=== PATIENT | female | born 1990 | race Caucasian/White ===

== ENCOUNTER → 2017-10-30 11:11 | Outpatient (CLI) | payer OTHER, SELFPAY ==
[2017-10-30 14:04] LABS: Group B Strep DNA By PCR Negative (Negative); Internal Control PASS; Probe Check PASS; Specimen Processing Control PASS
== END ==
PROVIDERS: Family Provider Family Medicine; PCP Family Medicine; Visit Provider Obstetrics & Gynecology
DX: Z34.83 Encounter for supervision of other normal pregnancy, third trimester (principal)
CPT/HCPCS: 87081; 87653

== ENCOUNTER 2017-11-14 11:00 | Inpatient (IN) | payer OTHER, SELFPAY ==
[2017-11-14 11:21] VITALS: BMI 27.6
[2017-11-14] MEDS: Lactated Ringers 1,000 ML 50 ML IV ×5 (11:30→17:45)
[2017-11-14 11:41] LABS: Hematocrit 40.1 % (37-47); Hemoglobin 13.6 g/dl (12.0-15.0); Mean Corp Hgb Conc 33.9 g/gl (32-36); Mean Corpuscular Volume 94.4 fL (81-99); Mean Platelet Vol. 11.6 fl (6.2-12.0); Platelet Count 158 K/mm3 (150-450); RBC Distribution Width CV 14.5 % (11.6-14.6); RBC Distribution Width SD 48.2 fl (35.1-43.9); Red Blood Count 4.25 M/mm3 (4.2-5.4); Scan Indicated on CBC? Y/N NO; White Blood Count 12.9 K/mm3 (4.4-11.0)
[2017-11-14] MEDS: Oxytocin 30 units/NS 500 ml 30 UNITS/500 ML IV.SOLN IV (11:54)
[2017-11-14] MEDS: fentaNYL-bupivacaine (epidural) 100 ML BAG EPIDURAL ×2 (13:30→19:14)
--- NOTE | 2017-11-14 14:05 | PCM.PN.BLA ---
Progress Note LABOR PROGRESS NOTE Comfortable after epidural placed AVS Pitocin at 6 mIU/min EFM: 110-120s avg variability accels. Variables. Category I tracing UCs q 5-8 minutes CX: 550/mod consistency, -2 but full bladder. A/P: SROM 38 1/7 wk EGA. Pitocin augmentation. Continue Pitocin per protocol to adequate mVUs. Anticipate
--- NOTE | 2017-11-14 16:07 | PCM.PN.BLA ---
Progress Note LABOR PROGRESS NOTE Chen cath in place AVSS Pitocin just increased, at 10 mIU/min EFM 110-120s avg variability, accels. Category I tracing UCs q 4-6 mins CX: unchanged since admission except possibly lower station after catheter placed, bladder emptied A/P: 38 09/02 wk SROM, GBS neg. Pitocin induction (has not progressed with minimal augmentation. true induction). IUPC placement to guide additional Pitocin given. UCs remain widely spaced and ? adequacy given little to no change of cervix. Continue pitocin.
--- NOTE | 2017-11-14 18:30 | PCM.PN.BLA ---
Progress Note P.C. from RN giving report (as strip remote viewed). Epidural turned back, pt had tingling in her chest. 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 Adequate progress. Anticipate Continue Pitocin induction.
--- NOTE | 2017-11-14 18:33 | PN_ITS ---
Progress Note P.C. from RN giving report (as strip remote viewed). Epidural turned back, pt had tingling in her chest. 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 Adequate progress. Anticipate Continue Pitocin induction.
[2017-11-14] MEDS: Oxytocin 30 units/NS 500 ml 30 UNITS/500 ML IV.SOLN 334 UNITS IV (20:24)
--- NOTE | 2017-11-14 20:32 | PCM.DCVAG ---
Discharge Diet: No Restrictions Discharge Activity: May Shower, May Take a Tub Bath May resume sexual activity in: 4-6 weeks Additional Activity Instructions:: Nothing in the vagina for 4-6 weeks. You may return to work/school in 6 weeks. Additional Instructions: If you experience any of the following, contact your healthcare provider. Bleeding that soaks a pad every hour for 2 hours Fever 100.4 or higher Unrelieved abdominal pain Problems urinating (including inability to urinate or burning while urinating). Visual changes Severe headache Flu-like symptoms Pain or redness in one of both of your breasts Pain, warmth, tenderness or swelling in your legs, especially the calf area Frequent nausea and vomiting Symptoms of depression or anxiety If you experience any of the following, call 911 or go to the nearest Emergency Room. Chest pain Problems breathing Seizure activity Partial or complete paralysis of a body part, slurred speech, weakness or drooping of the face, or a sudden inability to walk or hold your balance Allergies/Adverse Reactions: Allergies No Known Allergies Allergy (Verified 01/12/14 07:33) Medications to take at Discharge Folic Acid 2 mg PO BID 04/15/16 Vits [Prenatabs FA] 1 tablet PO DAILY 04/15/16 Orders to be completed after discharge: Electric breast pump Location: None Selected Please Follow Up With: Yocasta Lopes MD - [phone] When: Call to make an appointment with your doctor in 6 weeks. Primary Care Physician: Diallo Campbell MD [Primary Care Provider] -
--- NOTE | 2017-11-14 20:33 | DCINST_ITS ---
Discharge Diet: No Restrictions Discharge Activity: May Shower, May Take a Tub Bath May resume sexual activity in: 4-6 weeks Additional Activity Instructions:: Nothing in the vagina for 4-6 weeks. You may return to work/school in 6 weeks. Additional Instructions: If you experience any of the following, contact your healthcare provider. * Bleeding that soaks a pad every hour for 2 hours * Fever 100.4 or higher * Unrelieved abdominal pain * Problems urinating (including inability to urinate or burning while urinating) . * Visual changes * Severe headache * Flu-like symptoms * Pain or redness in one of both of your breasts * Pain, warmth, tenderness or swelling in your legs, especially the calf area * Frequent nausea and vomiting * Symptoms of depression or anxiety If you experience any of the following, call 911 or go to the nearest Emergency Room. * Chest pain * Problems breathing * Seizure activity * Partial or complete paralysis of a body part, slurred speech, weakness or drooping of the face, or a sudden inability to walk or hold your balance Allergies/Adverse Reactions: Allergies No Known Allergies Allergy (Verified 01/12/14 07:33) Medications to take at Discharge Folic Acid 2 mg PO BID 04/15/16 Vits [Prenatabs FA] 1 tablet PO DAILY 04/15/16 Orders to be completed after discharge: Electric breast pump Location: None Selected Please Follow Up With: Yocasta Lopes MD - [phone] When: Call to make an appointment with your doctor in 6 weeks. Primary Care Physician: Diallo Campbell MD [Primary Care Provider] -
--- NOTE | 2017-11-14 20:33 | PCM.OB.VAG ---
Vaginal Delivery Maternal Presentation: Spontaneous Rupture of Membranes 38 1/7 wk SROM Method of Induction: Pitocin Amniotic Membrane Rupture Type: Spontaneous at home Amniotic Fluid Description: Clear Final CAROL: 11/27/17 Gestational age: 38 Weeks and 1 Days Date of Procedure: 11/14/17 Surgery/ Procedure Performed: Spontaneous Vaginal Delivery Type of Anesthesia: None, Epidural Description of Procedure: of a allen viable female over intact perineum. head delivered directly OA. No nuchal cord. Shoulders delivered easily with rotation. OP and nares bulb suctioned on perineum. Infant to maternal abdomen with spont cry. Delayed cord clamping cord clamped x two and cut then on maternal abdomen. PP exam; 1st perineal laceration at posterior perineum, repaired to hemostatic and intact with 3-0 vicryl Placenta delivered by spont expulsion, expression. intact, normal appearing 3V cord . trailing membranes EBL 350 cc Pt and infant tolerated procedure well. To recovery, stable condition. Ray Jacob counts correct x two. Presentation: Vertex Placental Delivery Description: Spontaneous, Expressed Placenta Disposition: [facility] Cord Vessel Description: 3 Vessels Cord Entanglement: None Drain: Chen to straight drain Estimated Blood Loss: 350 A gender: Female (1 minute): 8 (5 minute): 9 Episiotomy Description: None Laceration: Midline, Perineal Extension/lac, 1st degree Medications given after delivery: IV Pitocin Complications: None
[2017-11-14] MEDS: Oxytocin 30 units/NS 500 ml 30 UNITS/500 ML IV.SOLN 167 UNITS IV (20:55)
[2017-11-14] MEDS: 0.9% Saline Lock 10 ML Syringe IV (21:55)
[2017-11-14] MEDS: Methylergonovine 0.2 MG/ML Ampul IM ×2 (22:43→23:19)
[2017-11-14] MEDS: Carboprost Tromethamine 250 MCG/ML Ampul IM (22:50)
[2017-11-14] MEDS: Oxytocin 30 units/NS 500 ml 30 UNITS/500 ML IV.SOLN 999 UNITS IV (22:52)
[2017-11-14 23:18] LABS: Hematocrit 34.1 % (37-47); Hemoglobin 11.4 g/dl (12.0-15.0); Mean Corp Hgb Conc 33.4 g/gl (32-36); Mean Corpuscular Hgb 31.7 pg (27.0-32.0); Mean Corpuscular Volume 94.7 fL (81-99); Mean Platelet Vol. 11.5 fl (6.2-12.0); Platelet Count 149 K/mm3 (150-450); RBC Distribution Width CV 14.6 % (11.6-14.6); RBC Distribution Width SD 50.1 fl (35.1-43.9); Scan Indicated on CBC? Y/N NO; White Blood Count 17.1 K/mm3 (4.4-11.0)
[2017-11-14 23:23] LABS: Partial Thromboplast Time 25.1 Seconds (24.1-36.2)
[2017-11-14 23:25] LABS: Prothrombin Time (Protime)PT. 13.6 SECONDS (11.7-14.9)
--- NOTE | 2017-11-14 23:36 | PCM.PN.OB ---
Subjective: Patient feels weak, some what lightheaded. Fundus crampy on exam. Objective: Afeb. BP 110s/60s HR - Physical Exam General: Alert, Oriented x3, Cooperative, No apparent distress Abdomen: Soft, Non Tender, - - Fundus firm one cm below umbilicus Extremities: No edema Weight: 151 lb 0.266 oz Body Mass Index (BMI) 27.6 Intake and Output for Last 24 Hours 11/12/17 11/13/17 11/14/17 23:59 23:59 23:59 Intake Total 5207 / 5207 Output Total 2950 / 2950 Balance 2257 / 2257 Laboratory Tests Past 24 Hrs 11/14/17 11/14/17 11/14/17 11:15 11:15 22:56 WBC 12.9 H 17.1 H RBC 4.25 3.60 L Hgb 13.6 11.4 L Hct 40.1 34.1 L MCV 94.4 94.7 MCH 32.0 31.7 MCHC 33.9 33.4 RDW 14.5 14.6 RDW Differential 48.2 H 50.1 H Plt Count 158 149 L MPV 11.6 11.5 PT INR APTT Blood Type O POSITIVE Antibody Screen NEGATIVE 11/14/17 11/14/17 22:56 22:56 WBC RBC Hgb Hct MCV MCH MCHC RDW RDW Differential Plt Count MPV PT 13.6 INR 1.0 APTT 25.1 Blood Type Antibody Screen Medical Necessity - Tobacco Use Smoking Status: Never smoker Assessment[facility] with passage of large clot and continued brisk bleeding. Weight of pad equivalent to 1100cc blood loss. Delivery was uncomplicated with small first degree laceration. Blood loss at delivery 300cc. When I entered room she had been given methergine x 1 dose and hemabate x 1 dose and had pitocin bolus going. Bleeding was not heavy on my exam with no clots noted in vagina. An US was performed at the bedside with no obvious retained clot or placenta. I examined the placenta and found it to be intact. I ordered an additional dose of methergine and will observe for now. A stat cbc was ordered with hgb dropping from 13.6 to 11.4 from admission to time just after hemorrhage. Platelets 158 down to 149K. PT ptt and INR normal.
[2017-11-15] MEDS: 0.9% Saline Lock 10 ML Syringe IV (00:15)
--- NOTE | 2017-11-15 01:26 | NURSING ---
PPH see hemorrhage sheet in pt chart for notes
[2017-11-15 01:45] VITALS: BP 103/65; PULSE 79; RESP 17; TEMP 36.6; O2SAT 97
[2017-11-15] MEDS: Acetaminophen 500 MG Tablet 1000 MG PO ×2 (02:20→12:27)
[2017-11-15 06:00] VITALS: BP 117/71; PULSE 77; RESP 18; TEMP 36.2
[2017-11-15 06:30] LABS: Hematocrit 35.2 % (37-47); Hemoglobin 11.7 g/dl (12.0-15.0); Mean Corp Hgb Conc 33.2 g/gl (32-36); Mean Corpuscular Volume 96.2 fL (81-99); Mean Platelet Vol. 11.5 fl (6.2-12.0); Platelet Count 153 K/mm3 (150-450); RBC Distribution Width CV 14.6 % (11.6-14.6); RBC Distribution Width SD 50.9 fl (35.1-43.9); Red Blood Count 3.66 M/mm3 (4.2-5.4); White Blood Count 16.2 K/mm3 (4.4-11.0)
[2017-11-15 06:31] LABS: Scan Indicated on CBC? Y/N NO
--- NOTE | 2017-11-15 07:56 | NURSING ---
marshall catheter removed @ 0340
--- NOTE | 2017-11-15 08:22 | PCM.PN.OB ---
Subjective: PPD#1 Doing well. Nursing. Feels much better today after episode of bleeding, feeling weak and faint last PM. labs done last pm and today. baby nursing well. Objective: Sitting up in bed holding sleeping baby. NAD - Physical Exam General: Alert, Oriented x3, Cooperative, No apparent distress HEENT: Atraumatic Neck: Supple Abdomen: Soft - Fundus firm NT at umbilicus. Extremities: Edema - sl edema at ankles Neurological: Cranial nerves II-XII grossly intact Psych/Mental Status: Normal Affect Vital Signs Temp Pulse Resp BP Pulse Ox 97.1 F L 77 18 117/71 97 11/15/17 06:00 11/15/17 06:00 11/15/17 06:00 11/15/17 06:00 11/15/17 01:45 Oxygen Delivery Method Room Air Weight: 68.5 kg Body Mass Index (BMI) 27.6 Intake and Output for Last 24 Hours 11/13/17 11/14/17 11/15/17 23:59 23:59 23:59 Intake Total 5207 / 5207 Output Total 2950 / 2950 2400 / 2400 Balance 2257 / 2257 -2400 / -2400 Laboratory Tests Past 24 Hrs 11/14/17 11/14/17 11/14/17 11:15 11:15 11:15 WBC 12.9 H RBC 4.25 Hgb 13.6 Hct 40.1 MCV 94.4 MCH 32.0 MCHC 33.9 RDW 14.5 RDW Differential 48.2 H Plt Count 158 MPV 11.6 PT INR APTT Blood Type O POSITIVE Antibody Screen NEGATIVE Crossmatch See Detail 11/14/17 11/14/17 11/14/17 22:56 22:56 22:56 WBC 17.1 H RBC 3.60 L Hgb 11.4 L Hct 34.1 L MCV 94.7 MCH 31.7 MCHC 33.4 RDW 14.6 RDW Differential 50.1 H Plt Count 149 L MPV 11.5 PT 13.6 INR 1.0 APTT 25.1 Blood Type Antibody Screen Crossmatch 11/15/17 06:12 WBC 16.2 H RBC 3.66 L Hgb 11.7 L Hct 35.2 L MCV 96.2 MCH 32.0 MCHC 33.2 RDW 14.6 RDW Differential 50.9 H Plt Count 153 MPV 11.5 PT INR APTT Blood Type Antibody Screen Crossmatch Medical Necessity - Tobacco Use Smoking Status: Never smoker Assessment/Plan PPD#1 Stable pp Hgb this am inc from last pm. 11.7 g/dl. Continue routine care. D/C both saline locks (placed at time of PPH)
[2017-11-15] MEDS: Ibuprofen 600 MG Tablet PO ×3 (08:26→20:46)
[2017-11-15 08:30] VITALS: BP 105/64; PULSE 84; RESP 16; TEMP 36.3; O2SAT 98
[2017-11-15] MEDS: Prenatal Vits Tablet 1 TABLET PO (10:22)
[2017-11-15 12:25] VITALS: BP 118/59; PULSE 69; RESP 16; TEMP 36.3
[2017-11-15 15:45] VITALS: BP 108/56; PULSE 71; RESP 16; TEMP 36.2; O2SAT 98
[2017-11-15 20:35] VITALS: BP 99/57; PULSE 73; RESP 18; TEMP 36.6
[2017-11-16 01:23] VITALS: BP 111/67; PULSE 74; RESP 16; TEMP 36.3
[2017-11-16] MEDS: Acetaminophen 500 MG Tablet 1000 MG PO (01:27)
[2017-11-16] MEDS: Ibuprofen 600 MG Tablet PO ×2 (06:11→13:04)
--- NOTE | 2017-11-16 08:14 | PCM.PN.OB ---
Subjective: PPD#2 , hemorrhage. Doing well. No further bleeding. Last dose of ordered po Methergine this am at appr 4:30 . Some cramping with nursing, manageable. No concerns voiced. Objective: Sitting up in bed holding baby. Baby is attempting to latch, fussy. - Physical Exam General: Alert, Oriented x3, Cooperative, No apparent distress HEENT: Atraumatic Neck: Supple Abdomen: Soft - Fundus firm NT inferior to umbilicus Neurological: Cranial nerves II-XII grossly intact Psych/Mental Status: Normal Affect Vital Signs Temp Pulse Resp BP Pulse Ox 97.3 F L 74 16 111/67 98 11/16/17 01:23 11/16/17 01:23 11/16/17 01:23 11/16/17 01:23 11/15/17 15:45 Oxygen Delivery Method Room Air Weight: 68.5 kg Body Mass Index (BMI) 27.6 Intake and Output for Last 24 Hours 11/14/17 11/15/17 11/16/17 23:59 23:59 23:59 Intake Total 5207 / 5207 Output Total 2950 / 2950 2900 / 2900 Balance 2257 / 2257 -2900 / -2900 Medical Necessity - Tobacco Use Smoking Status: Never smoker Assessment/Plan PPD#2 Stable pp D/C home today. RTO in 6 wk for pp check.
[2017-11-16 10:00] VITALS: BP 104/59; PULSE 80; RESP 16; TEMP 36.7; O2SAT 98
[2017-11-16] MEDS: Prenatal Vits Tablet 1 TABLET PO (10:31)
== END 2017-11-16 13:30 | disposition home or self-care (01) | DRG 774 ==
PROVIDERS: Admitting Provider Obstetrics & Gynecology; Family Provider Family Medicine; PCP Family Medicine; Visit Provider Obstetrics & Gynecology
DX: O70.0 First degree perineal laceration during delivery (principal); O72.1 Other immediate postpartum hemorrhage; O76 Abnormality in fetal heart rate and rhythm complicating labor and delivery; Z37.0 Single live birth; Z3A.38 38 weeks gestation of pregnancy
CPT/HCPCS: 59025; 59050; 85027; 85610; 85730; 86850; 86900; 86920; 99218; J7120; A4216; G0378

== ENCOUNTER → 2018-12-16 16:20 | Outpatient (CLI) | payer OTHER, SELFPAY ==
[2018-12-16 16:25] LABS: Bacteria 0 SEEN /hpf (None Seen); Mucous, Urine 0 SEEN /hpf (<or=2+); Squamous Epithelial Cells - UA 0 SEEN /hpf (5-10)
[2018-12-16 17:07] LABS: Color, Urine Yellow (Yellow); Glucose, Dipstick Normal (Normal); Ketone-Dipstick Negative (Negative); Leukocyte Esterase-Dipstick 100 /ul (Negative); Nitrite-Dipstick Negative (Negative); Occult Blood-Urine 50 /ul (Negative); Protein-Dipstick Negative (Negative); Specific Gravity, Urine 1.005 (1.002-1.030); Urine Bilirubin Dipstick Negative (Negative); Urine Clarity Clear (Clear); Urine Urobilinogen Normal (Normal)
[2018-12-16 17:17] LABS: Red Blood Cells-Urine 0-5 SEEN /hpf (0-5); White Blood Cells 5-10 SEEN /hpf (0-5)
== END ==
PROVIDERS: Family Provider Family Medicine; PCP Family Medicine; Referring Provider Family Medicine; Visit Provider Family Medicine
DX: R30.0 Dysuria (principal)
CPT/HCPCS: 81001; 87086; 87088; 87186

== ENCOUNTER → 2018-12-25 | Outpatient (CLI) | payer OTHER, SELFPAY ==
[2018-12-27 13:02] LABS: HPV Reflexed? NOT INDICATED
== END | disposition home or self-care (01) ==
PROVIDERS: Visit Provider Obstetrics & Gynecology
DX: Z12.4 Encounter for screening for malignant neoplasm of cervix (principal)
CPT/HCPCS: 88175; G0145

== ENCOUNTER → 2019-09-30 16:28 | Outpatient (CLI) | payer OTHER, SELFPAY ==
[2019-09-30 18:16] LABS: Anion Gap 4 (5-15); BUN 13 mg/dL (7-18); BUN/Creat Ratio 16.9 RATIO (10-20); Calcium,Total 9.7 mg/dL (8.5-10.1); Chloride 106 mmol/L (98-107); Creatinine, Serum 0.77 mg/dL (0.55-1.02); EST Glomerular Filtration Rate 94 mL/min (>60); Est Glom Filt Rate - Afr Amer 113 mL/min (>60); Glucose 89 mg/dL (74-106); Magnesium 2.3 mg/dL (1.6-2.6); Potassium 3.8 mmol/L (3.5-5.1); Sodium Level 140 mmol/L (136-145)
== END ==
PROVIDERS: PCP Family Medicine; Referring Provider Family Medicine; Visit Provider Family Medicine
DX: R20.0 Anesthesia of skin (principal)
CPT/HCPCS: 36415; 80048; 83735

== ENCOUNTER → 2019-10-11 07:59 | Outpatient (CLI) | payer OTHER, SELFPAY ==
--- NOTE | 2019-10-11 08:12 | MRI_ITS ---
STUDY: MRI BRAIN WITH AND WITHOUT CONTRAST REASON FOR EXAM: Female, 29 years old. R leg/Rjaw numbness -3 weeks TECHNIQUE: Standardized multiplanar fat and water weighted pulse sequences were obtained. IV 10 cc Dotarem was administered for the contrast portion of the examination. COMPARISON: None. FINDINGS: Normal size of the ventricles and extra-axial spaces for the patient''s age. Normal white matter tracts of the supratentorial brain. Normal bilateral basal ganglia. Normal thalami. There is no extra-axial fluid accumulation. Normal flow voids within the major intracranial circulation suggesting patency by spin echo criteria. Normal venous enhancement. There is no enhancing intra-axial or extra-axial abnormality. Normal sella turcica, pituitary gland, infundibular stalk, optic chiasm and hypothalamus. Normal tectal plate and pineal gland. Normal midbrain, cristi and medulla. Normal cerebellum. Normal basal cisterns. Normal bilateral temporal bones. Normal bilateral internal auditory canals. No demonstrated orbital abnormality, within the constraints of a routine brain study. Normal visualized paranasal sinuses. Normal calvarium and skull base. Normal visualized soft tissue structures. Normal visualized upper cervical spine. MRI/Brain W/WO Contrast IMPRESSION: Normal unenhanced and enhanced MRI of the brain. Electronically Signed: Kajal Daniels, at 18:08 EST Tel , Service support ,
== END ==
PROVIDERS: PCP Family Medicine; Referring Provider Family Medicine; Visit Provider Family Medicine
DX: R20.0 Anesthesia of skin (principal); R20.2 Paresthesia of skin
CPT/HCPCS: 70553; A9575

== ENCOUNTER 2020-10-06 12:25 | Outpatient (RCR) | payer OTHER, SELFPAY | END 2020-10-24 23:59 | LOC: EMPH 12:25 | PROVIDERS: PCP Family Medicine; Referring Provider Family Medicine Geriatric Medicine; Visit Provider Family Medicine Geriatric Medicine | DX: Z03.818 Encounter for observation for suspected exposure to other biological agents ruled out (principal) | CPT/HCPCS: 87426 ==

== ENCOUNTER 2020-11-17 11:58 | Outpatient (RCR) | payer OTHER, SELFPAY ==
[2020-10-20 15:22] VITALS: BMI 25.0
== END 2020-11-24 23:59 ==
LOC: EMPH 11:58
PROVIDERS: PCP Family Medicine; Referring Provider Family Medicine Geriatric Medicine; Visit Provider Family Medicine Geriatric Medicine
DX: Z03.818 Encounter for observation for suspected exposure to other biological agents ruled out (principal)
CPT/HCPCS: 87426

== ENCOUNTER → 2021-08-06 07:27 | Outpatient (CLI) | payer OTHER, SELFPAY ==
[2021-08-06 07:57] LABS: Hematocrit 40.8 % (37-47); Hemoglobin 13.3 g/dL (12.0-15.0); Mean Corp Hgb Conc 32.6 g/dL (32-36); Mean Corpuscular Hgb 29.9 pg (27.0-32.0); Mean Corpuscular Volume 91.7 fL (81-99); Mean Platelet Vol. 10.5 fl (6.2-12.0); Platelet Count 195 K/mm3 (150-450); RBC Distribution Width CV 12.3 % (11.6-14.6); RBC Distribution Width SD 41.1 fl (35.1-43.9); Red Blood Count 4.45 M/mm3 (4.2-5.4); White Blood Count 6.3 K/mm3 (4.4-11.0)
[2021-08-06 08:31] LABS: Anion Gap 7 (5-15); BUN 12 mg/dL (7-18); BUN/Creat Ratio 17.6 RATIO (10-20); Calcium,Total 9.1 mg/dL (8.5-10.1); Chloride 107 mmol/L (98-107); Creatinine, Serum 0.68 mg/dL (0.55-1.02); EST Glomerular Filtration Rate 106 mL/min (>60); Est Glom Filt Rate - Afr Amer 129 mL/min (>60); Glucose 97 mg/dL (74-106); Magnesium 2.2 mg/dL (1.6-2.6); Potassium 4.2 mmol/L (3.5-5.1); Sodium Level 140 mmol/L (136-145); Thyroid Stim Hormone (TSH) 2.22 uIU/mL (0.358-3.74)
== END ==
PROVIDERS: PCP Family Medicine; Visit Provider Family Medicine
DX: R00.2 Palpitations (principal)
CPT/HCPCS: 36415; 80048; 83735; 84443; 85027

== ENCOUNTER 2021-12-13 07:35 | Outpatient (CLI) | payer OTHER, SELFPAY ==
[2021-12-17 17:12] LABS: HPV APTIMA, High Risk Negative (Negative)
== END 2021-12-13 23:59 | disposition home or self-care (01) ==
LOC: LABSPEC 12-14 07:36
PROVIDERS: PCP Family Medicine; Visit Provider Obstetrics & Gynecology
DX: Z12.4 Encounter for screening for malignant neoplasm of cervix (principal)
CPT/HCPCS: 87624; 88175; G0145

== ENCOUNTER → 2023-09-12 | Outpatient (CLI) | payer OTHER, SELFPAY ==
--- NOTE | 2023-09-12 08:57 | US_ITS ---
STUDY: ULTRASOUND BREAST - LEFT REASON FOR EXAM: Female, 33 years old. Left upper inner quadrant breast pain. TECHNIQUE: Axial and longitudinal images of the LEFT breast were performed with a high resolution ultrasound transducer. # OF IMAGES: 38 COMPARISON: Bilateral diagnostic mammogram performed today. FINDINGS: LEFT Breast: Targeted examination of the upper inner quadrant of the left breast showed heterogeneously dense fibroglandular tissue. No dominant cystic or solid masses were identified. US/Breast Limited Unilateral IMPRESSION: No abnormality of the targeted left breast ultrasound. Negative imaging should not prohibit further evaluation of any clinically suspicious finding. ASSESSMENT CATEGORY: BIRADS Category 2: Benign. A letter regarding these results will be sent to the patient by the facility within 30 days. Electronically Signed: Sb Sesay MD at 10:33 EST ,
--- NOTE | 2023-09-12 08:57 | BI_ITS ---
MAMMOGRAPHY - BILATERAL SCREENING 3-D TOMOSYNTHESIS REASON FOR EXAM: Female, 33 years old. Left upper inner breast pain. PERTINENT HISTORY: No significant family history. TECHNIQUE: 2-D mammograms and 3-D Tomosynthesis of the breast (s) were performed. CAD was performed. COMPARISON: 01/04/2012 FINDINGS: The breast composition is heterogeneously dense that can obscure small breast masses. No dominant masses, suspicious microcalcifications, asymmetries, skin thickening or nipple retraction. Normal lymph nodes and scattered benign calcifications. Targeted left breast ultrasound showed no abnormality (see detailed left breast ultrasound report). BI/DIAG MAMM W/CAD, BILAT IMPRESSION: No interval change and no abnormality on the targeted left breast ultrasound.. Screening mammogram recommended at age 40. ASSESSMENT CATEGORY: BIRADS Category 2: Benign. A letter regarding these results will be sent to the patient by the facility within 30 days. FOLLOW UP RECOMMENDATION: Begin screening mammograms at 40 years of age. (N) Approximately 10% of breast cancers are not detected by mammography. A normal mammogram should not delay biopsy of a clinically suspicious abnormality. Electronically Signed: Sb Sesay MD at 10:37 EST ,
== END | disposition home or self-care (01) ==
LOC: OPBI 08:57
PROVIDERS: PCP Family Medicine; Referring Provider Obstetrics & Gynecology; Visit Provider Obstetrics & Gynecology
DX: N64.4 Mastodynia (principal)
CPT/HCPCS: 76642; 77062; 77066; G0279

== ENCOUNTER → 2023-10-15 | Outpatient (CLI) | payer OTHER, SELFPAY ==
--- NOTE | 2023-10-15 14:03 | RAD_ITS ---
STUDY: X-RAY - LEFT KNEE REASON FOR EXAM: Female, 33 years old. PAIN IN LEFT KNEE TECHNIQUE: 4 view(s) of the knee. COMPARISON: None. FINDINGS: Normal visualized distal femur. Normal visualized proximal tibia and fibula. Normal proximal tibiofibular articulation. There is no demonstrated fracture. Normal medial femorotibial compartment. Normal lateral femorotibial compartment. Normal patellofemoral articulation. There is no demonstrated joint effusion. The soft tissue structures are unremarkable. RAD/Knee 4 or More Views IMPRESSION: Normal x-ray examination of the knee. Electronically Signed: Kamlesh Hendrix MD at 22:56 EST ,
== END | disposition home or self-care (01) ==
PROVIDERS: PCP Family Medicine; Referring Provider Physician Assistant Surgical; Visit Provider Physician Assistant Surgical
DX: M25.562 Pain in left knee (principal)
CPT/HCPCS: 73564

== ENCOUNTER → 2023-10-25 | Outpatient (CLI) | payer OTHER, SELFPAY ==
--- NOTE | 2023-10-25 06:38 | MRI_ITS ---
STUDY: MRI LEFT KNEE REASON FOR EXAM: Female, 33 years old. Sprain. Anterior and medial pain, status post fall 10/12/2023. TECHNIQUE: Standardized fat and water weighted pulse sequences were obtained in all 3 orthogonal planes. COMPARISON: Left knee radiographs dated 10/15/2023. FINDINGS: Normal medial meniscus. Normal hyaline cartilage of the medial femorotibial compartment. Normal medial femoral condyle and tibial plateau. Normal medial collateral ligamentous complex (MCL). Normal distal semimembranosus, gracilis and semitendinosus tendons. There is a radial tear of the body of the lateral meniscus (coronal T2 series 6 image 16; axial T2 series 2 image 17). Normal hyaline cartilage of the lateral femorotibial compartment. Normal lateral femoral condyle and tibial plateau. Normal proximal tibiofibular articulation. Normal lateral collateral ( fibular ) ligament. Normal popliteus tendon. Normal biceps femoris tendon. Normal anterior cruciate ligament (ACL). Normal posterior cruciate ligament (PCL). Normal congruent patellofemoral articulation. Normal hyaline cartilage of the patellofemoral compartment. Normal medial and lateral patellar retinaculum. Normal quadriceps tendon. Normal patellar tendon. Normal Hoffa''s fat pad. There is a moderate volume joint effusion. There is a tiny popliteal cyst. There is minimal subcutaneous soft tissue edema along the anterior aspect of the knee. The otherwise visualized osseous structures are unremarkable. MRI/Lower Ext Joint Only (Routine) IMPRESSION: Radial tear of the body of the lateral meniscus. Moderate joint effusion with a tiny popliteal cyst. Minimal subcutaneous soft tissue edema along the anterior aspect of the knee. Electronically Signed: Sam Sexton MD at 8:41 EST ,
== END | disposition home or self-care (01) ==
LOC: MRI 06:37
PROVIDERS: PCP Family Medicine; Referring Provider Physician Assistant Surgical; Visit Provider Physician Assistant Surgical
DX: S83.92XA Sprain of unspecified site of left knee, initial encounter (principal)
CPT/HCPCS: 73721

== ENCOUNTER 2023-11-14 13:13 | Day surgery (SDC) | payer OTHER, SELFPAY ==
[2023-11-14] VITALS (10 sets, daily range): BP systolic 118–139; BP diastolic 77–90; PULSE 72–93; RESP 16–18; TEMP 36.8–37.1; O2SAT 97–100; BMI 29.8
[2023-11-14 13:37] LABS: Internal QC Validated? YES +Cl - CLEAR BKGD; Pregnancy, Urine Negative Negative
[2023-11-14] MEDS: Lactated Ringers 1,000 ML 15 ML IV (13:38)
[2023-11-14] MEDS: Cefazolin 2 GM in 0.9% Normal Saline (100mL Bag) 100 ML IV (15:10)
[2023-11-14] MEDS: Epinephrine (1 mg/ml) 1 MG/ML VIAL (15:29)
[2023-11-14] MEDS: Bupivacaine Mpf 0.5% 30 ML VIAL (16:04)
--- NOTE | 2023-11-14 16:27 | PCM.OPRPT ---
Report of Operation Date of Procedure: 11/14/23 Description of Surgical Findings:: Preoperative diagnosis: Left knee lateral meniscus radial tear Postoperative diagnosis: Left knee lateral meniscus radial tear Procedure: Left knee arthroscopic lateral meniscus repair Surgeon: Bruce Sheppard DO Glass Cylinder Flanger: BROOKLYN Bocanegra Anesthesia: General LMA Anesthesiologist: Dr. Burger Estimated blood loss: 5 cc IV fluids: Per anesthesia record Urine output: None recorded Specimen: None Packing/drains: None Complications: None apparent Implants: Arthrex fiber stitch x 3 Intraoperative findings: Complete radial tear anterior body lateral meniscus. Bushra repair. 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 She had persistent pain despite NSAIDs, activity modification, bracing, and rest. MRI was obtained demonstrated a radial tear of the lateral meniscus. I saw the patient consultation. I recommend surgical intervention in the form of left knee arthroscopic meniscus repair versus partial lateral meniscectomy. I reviewed the risks, benefits, and alternatives. Risks included but were not limited to bleeding, infection, loss of life or limb, need for additional surgery, persistent pain, nonhealing meniscus, mechanical symptoms, neurovascular injury, DVT or PE. Patient expressed understanding of these risks and wished to proceed with surgery. Description of procedure: Patient was identified in the preoperative holding area by name, medical record number, and date of . The operative extremity was marked. All questions were answered to the patient's satisfaction. At time of her procedure, patient was brought to the operative suite and positioned supine on standard operating table. General anesthesia was induced and LMA was placed. The left lower extremity was then prepared for surgery with by applying a well-padded pneumatic tourniquet to the left upper thigh. The leg was then placed in an arthroscopic leg flynn. A well-leg flynn was placed under the patient's right thigh and the foot of the bed was dropped 90 degrees. We prepped and draped the left lower extremity in a normal, sterile orthopedic fashion. We performed timeout with all parties in attendance in agreement with the side, site, and operation to be performed. No concerns were voiced and we elected to proceed with surgery. I first exsanguinated the left lower extremity with an Esmarch bandage. Tourniquet was inflated to 250 mmHg which remained up for 38 minutes. Esmarch was removed. A standard lateral portal was established with a 15 blade scalpel. Blunt tipped trocar was used to insert the arthroscopic cannula. The joint was then filled with normal saline with epinephrine. Arthroscope was then introduced. Diagnostic arthroscopy was commenced. Patellofemoral joint was pristine. Medial lateral gutters were pristine. Medial compartment was entered with valgus stress and was pristine. Intercondylar notch was pristine. No evidence of ACL injury was noted. I then entered the lateral compartment with a [id number] stress. I established a far medial portal for access to the visualized lateral meniscal root tear which was at the anterior portion of the meniscal body. Spinal needle was used to plan are all inside repair and appropriate portal placement. Portal was then made with a 15 blade scalpel. Cartilage was pristine in the lateral compartment. Near complete lateral meniscus radial tear was noted and suspected to have early healing at the red red zone of the lateral meniscus. I then proceeded with preparation for repair. I utilized a meniscal rasp to debride the edges of the meniscus tear. I then placed a ripstop type suture in vertical fashion with a fiber stitch implant in the more posterior leaflet. I attempted to place a more anterior ripstop but was unable to due to trajectory. I then proceeded with [id number] repair with 2 separate fiber stitch implants. She is were all tensioned in standard fashion and cut flush with the repair. There is excellent reapproximation of meniscal tissue. This appeared to be stable through an arc of motion and probing. I then proceeded with micro fracture at the intercondylar notch for marrow stimulation. Anterior to the ACL, for 5 mm perforations were made using a chondral pik. I then thoroughly irrigated the knee. I anesthetized the portal sites and knee with 30 cc total 0.25% bupivacaine with epinephrine. Portal sites were closed with interrupted [id number] 4-0 nylon suture. Bulky sterile compression dressing was applied. Tourniquet was deflated. The left leg was then placed in a T ROM type brace set from 0 to 90 degrees and locked in full extension. She was repositioned supine and safely extubated the operative suite. She was transferred to her gurney and subsequently to PACU in stable condition. She tolerated the procedure well without apparent complication. Postoperative plan: Nonweightbearing x 6 weeks left lower extremity Range of motion 0-90 degrees, knee brace locked when upright. Physical therapy to be initiated in the next week for early rehab Aspirin 81 mg twice daily for DVT prophylaxis x 6 weeks Oxycodone prescription provided. Tylenol and ibuprofen encouraged. Follow-up in 2 weeks for suture removal.
[2023-11-14] MEDS: HYDROcodone Bitartrate/Apap 5/325 Tablet PO (17:42)
== END 2023-11-14 18:30 | disposition home or self-care (01) ==
LOC: SDC 13:14 → AC 13:16
PROVIDERS: Anesthesiology; PCP Family Medicine; Referring Provider Student in an Organized Health Care Education/Training Program; Visit Provider Student in an Organized Health Care Education/Training Program
PROC: (CPT 29870; principal; 2023-11-14 14:20)
DX: S83.282A Other tear of lateral meniscus, current injury, left knee, initial encounter (principal); M25.462 Effusion, left knee; E66.3 Overweight; R03.0 Elevated blood-pressure reading, without diagnosis of hypertension; Z68.28 Body mass index [BMI] 28.0-28.9, adult
CPT/HCPCS: 29882; 01400; 81025; C1713; J7120; J2405

== ENCOUNTER 2024-01-31 15:00 | Outpatient (RCR) | payer OTHER, SELFPAY ==
--- NOTE | 2023-11-21 16:53 | HP.PTEVAL ---
Patient's Visit Information Visit Information Visit Information: ROSALBA MCCLAIN is a 33 year old F referred to Physical Therapy by Dr. Bruce Sheppard DO with a diagnosis of L lateral meniscal repair. DOS: 11/14/23. Date of Evaluation: 11/21/23 Physical Therapist: Amish Alex DPT Visit Plan Frequency: 2x /Week Duration: 6 Weeks Plan: Patient is currently NWBing for 6 weeks. Allowed ROM 0-0-90eg. of L knee. 1) Start with ROM of L knee progressing to 0-0-90deg. 2) quad isometrics, progressing SLR without. Glute med, max strengthening 3) Reducing L knee joint effusion progressing to symmetrical to R knee. may use stim if need for quad activation HEP at IE: quad set, heel slides, knee dangle, heel prop, long sitting HS stretch Subjective Subjective: Pt. is here today for her initial evaluation with diagnosis of L lateral meniscal repair. DOS: 11/14/23. Pt. arrives using 2 crutches and TROM brace as prescribed. Pt. denies N/T, no calf pain. Pt. is currently NWB on her LLE for the next 6 weeks. Pt. has been doing quad sets, icing, elevating and trying some dangling her knee off her bed to work on bending. Pt. is taking meds as prescribed. 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 Pt. also likes hiking, walking, doing activities with her kids in her free time. Pt. is sleeping well also. Pt. is hopeful to get back to all work and recreational activities without limitations. Pain L knee: Pain Intensity (Out of 10): 3 Pain Intensity Range: 2 and 6 Objective Objective: POSTURE: Pt. has good posture in stance, good NWBing on LLE. Pt. uses crutches properly. PALPATION: Pt. has marked edema throughout her L knee. No pitting edema noted. Pt. has 2 well healing incisions, with no signs of infection. NEURO: Pt. has normal sensation in BLEs. Normal achilles DTR bilaterally. ROM: 0-3-73deg. Pt. reports tightness at both end ranges. Normal HS length bilaterally. MMT: Pt. has 5/5 strength of her RLE. LLE: ankle 5/5; knee: decent quad set, but not full contraction; hip: flexion 3-/5, abd 3/5, ext 3/5. GAIT: pt. maintains proper NWBing of her LL with good use of crutches without issues. STAIRS: good NWBing, step to pattern. Both with crutches and with use of railings. Balance/Special Test Scores Lower Extremity Functional Score: 18 Goals Goal 1:: LTG: Pt. to be I with HEP for L knee ROM, quad and glute strengthening. Goal Time Frame: 4-6 Weeks Goal 2:: STG: Pt. to have increased L knee ROM to 0-0-90deg. allowing for proper gait mechanics once able. Goal Time Frame: 2-4 Weeks Goal 3:: STG: Pt. to be able to complete SLR x20 without extensor lag indicating improved quad strength. Goal Time Frame: 2-4 Weeks Goal 4:: LTG: Pt. to have increased glute max and glute medius strength to 5/5 throughout. Goal Time Frame: 4-6 Weeks Goal 5:: LTG: pt. to have decreased L knee joint effusion symmetrical to R side. Goal Time Frame: 4-6 Weeks Rehabilitation Potential Physical Therapy Diagnosis: Pt. has signs and symptoms consistent with L lateral meniscal repair. DOS: 11/14/23. Pt. isto be NWBing for 6 weeks after surgery. Pt. has marked hypomobility, weakness, difficulty walking. Pt. would benefit from PT to address the above limitations progressing back to all recreational and work activities without limitations. Rehabilitation Potential: Excellent Anticipated Interventions Patient/Client Instruction: Educate patient on: Condition, Plan of Care, Risk Factors and Benefits of Fitness Program For the Purpose of:: To facilitate caregiver knowledge, To improve self management, To prevent re-injury, To improve ability to perform tasks related to life management and To improve tolerance to ADL's Therapeutic Exercise to Include: Strength training, Power training, Coordination, Body mechanics, Postural training, Flexibilty training, Passive ROM and Active ROM For the Purpose of:: To decrease pain, To decrease swelling/inflammation, To increase ROM, To improve nutrient delivery to tissue, To increase oxygenation perfusion, To improve muscle performance and motor function, To improve ability to perform ADL's, To increase tolerance to activity/condition/position, To improve performance and independence with ADL's, To decrease level of supervision to perform tasks, To improve ability of physical actions for home/community/work/leisure, To improve health of tissue, To decrease soft tissue restriction, To increase flexibility/ROM and To improve endurance Manual Therapy Techniques to Include: Scar massage and Soft tissue mobilization For the Purpose of:: To decrease pain, To decrease swelling/inflammation, To increase ROM and To improve nutrient delivery to tissue Other electric stimulation: Yes Cryotherapy (ice pack, ice massage): Yes Vasopneumatic device: Yes For the Purpose of:: To decrease pain, To decrease swelling/inflammation, To increase ROM, To improve nutrient delivery to tissue and Other Other: [place] stim for quad activation Text: Thank you for the opportunity to evaluate your patient. For Medicare and Medicare HMO plans, please review the plan of care and approve it. It will need to be FAXED BACK to us at [phone] for Medicare purposes. For Medicare only, by signing this I certify the plan of care. Please let me know if there are questions or concerns regarding this plan of care. Physician Signature: Date:
--- NOTE | 2024-01-03 12:02 | HP.PTREVAL ---
Re-Evaluation Intro: Dr. Bruce Sheppard, DO, It has been my pleasure to treat ROSALBA MCCLAIN over the last 13 visits for Left lateral meniscal repair. DOS: 11/14/23. Please see the progress note below for an update on the physical therapy plan of care! Subjective Subjective: Pt. reports being pretty sore after last visit. Pt. rated pain at a 6 /10 the following day. Pt. reports having pain at 4/10 pain today Objective Objective/Function: Pt. is walking without crutches at this point in time. She does have her brace on, but has it open. She is not sure if this is okay. She showed me her doctors note which looks like she needs to keep it in extension while WBing. ROM: AROM: 0-3-115deg, PROM 0-0-119deg. Good HS length noted. MMT: Pt. has a decent quad set. SLR: Pt. has a marked extensor lag -20deg with SLR. L hip: abd 28#, ext 21#. GAIT: Pt. ambulates with good tolerance, but does have limited knee flexion during swing phase. Pt. has good extension during stance phase. No increase in symptoms with gait. She still has some more joint swelling than I would like 1inch difference between the two. She did have some increased pain after her last visit, I want to stay away from increasing her symptoms or swelling. She really needs to work on better quad activation, I want to reduce her extensor lag with SLR and progress further ROM. Plan Plan Plan: Progress quad strength to reduce extensor lag, add in further ROM progression. Pt. to check with physician about use of brace with WBing and with walking. I am extending her x2 a week until the end of the month when she sees physician again. Balance/Gait/Functional tests Balance/Special Test Scores Lower Extremity Functional Score: 27 Goals Goals Goal 1:: LTG: Pt. to be I with HEP for L knee ROM, quad and glute strengthening. Goal Time Frame: 4-6 Weeks Goal Progress: Progressing Goal 2:: LTG: Pt. to have increased L knee ROM to 0-0-130deg. Goal Time Frame: 2-4 Weeks Goal Progress: New goal Goal 3:: STG: Pt. to be able to complete SLR x20 without extensor lag indicating improved quad strength. Goal Time Frame: 2-4 Weeks Goal Progress: Progressing Goal 4:: LTG: Pt. to have increased glute max and glute medius strength to 5/5 throughout. Goal Time Frame: 4-6 Weeks Goal Progress: Progressing Goal 5:: LTG: pt. to have decreased L knee joint effusion symmetrical to R side. Goal Time Frame: 4-6 Weeks Goal Progress: Progressing Anticipated Interventions Anticipated Interventions Patient/Client Instruction: Educate patient on: Condition, Plan of Care, Risk Factors and Benefits of Fitness Program For the Purpose of:: To facilitate caregiver knowledge, To improve self management, To prevent re-injury, To improve ability to perform tasks related to life management and To improve tolerance to ADL's Therapeutic Exercise to Include: Strength training, Power training, Coordination, Body mechanics, Postural training, Flexibilty training, Passive ROM and Active ROM For the Purpose of:: To decrease pain, To decrease swelling/inflammation, To increase ROM, To improve nutrient delivery to tissue, To increase oxygenation perfusion, To improve muscle performance and motor function, To improve ability to perform ADL's, To increase tolerance to activity/condition/position, To improve performance and independence with ADL's, To decrease level of supervision to perform tasks, To improve ability of physical actions for home/community/work/leisure, To improve health of tissue, To decrease soft tissue restriction, To increase flexibility/ROM and To improve endurance Manual Therapy Techniques to Include: Scar massage and Soft tissue mobilization For the Purpose of:: To decrease pain, To decrease swelling/inflammation, To increase ROM and To improve nutrient delivery to tissue Other electric stimulation: Yes Cryotherapy (ice pack, ice massage): Yes Vasopneumatic device: Yes For the Purpose of:: To decrease pain, To decrease swelling/inflammation, To increase ROM, To improve nutrient delivery to tissue and Other Other: [place] stim for quad activation Re-Evaluation Ending Re-evaluation ending: Please do not hesitate to contact me at [phone] by phone or if you have questions or concerns regarding this new plan of care! Sincerely, Amish Alex DPT
== END 2024-01-31 19:00 | disposition home or self-care (01) ==
LOC: PT 15:00
PROVIDERS: PCP Family Medicine; Referring Provider Student in an Organized Health Care Education/Training Program; Visit Provider Student in an Organized Health Care Education/Training Program
DX: S83.282D Other tear of lateral meniscus, current injury, left knee, subsequent encounter (principal); M25.462 Effusion, left knee
CPT/HCPCS: 97016; 97032; 97110; 97161; 97530

== ENCOUNTER → 2025-07-09 | Outpatient (CLI) | payer OTHER, SELFPAY ==
[2025-07-09 08:36] LABS: Hematocrit 41.8 % (37-47); Hemoglobin 13.5 g/dL (12.0-15.0); Immature Granulocytes Count 0.030 X10^3/uL (0.0-0.0); Mean Corp Hgb Conc 32.3 g/dL (32-36); Mean Corpuscular Volume 93.5 fL (81-99); Mean Platelet Vol. 10.5 fl (6.2-12.0); NRBC Flagged by Analyzer 0 % (0-5); Platelet Count 243 K/mm3 (150-450); RBC Distribution Width CV 13.2 % (11.6-14.6); RBC Distribution Width SD 45.4 fl (35.1-43.9); Red Blood Count 4.47 M/mm3 (4.2-5.4); White Blood Count 6.5 K/mm3 (4.4-11.0)
[2025-07-09 09:27] LABS: AST(SGOT) 40 U/L (<=31); Alanine Aminotransfer ALT/SGPT 53 U/L (<=34); Albumin, Serum 4.5 g/dL (3.5-5.0); Alkaline Phosphatase 55 U/L (35-104); Anion Gap 11 (5-15); BUN 12 mg/dL (4-19); BUN/Creat Ratio 14.8 RATIO (10-20); Calcium,Total 9.5 mg/dL (7.6-11.0); Carbon Dioxide 23.5 mmol/L (21.0-32.0); Chloride 103 mmol/L (98-108); Cholesterol 185 mg/dL (<=200); Globulin 2.9 g/dL (2.2-4.2); Glucose 99 mg/dL (70-99); Low Density Lipoprotein Calc. 112 mg/dL; Potassium 4.3 mmol/L (3.3-5.1); Triglycerides 81 mg/dL; Very Low Density Lipoprotein 16 mg/dL (5-40); Vitamin D,25 Hydroxy 23.2 ng/mL (30-100); cholesterol:hdl ratio screen 3.20
== END | disposition home or self-care (01) ==
LOC: LAB 08:07
PROVIDERS: PCP Family Medicine; Referring Provider Nurse Practitioner Family; Visit Provider Nurse Practitioner Family
DX: N95.1 Menopausal and female climacteric states (principal); R53.83 Other fatigue; G47.00 Insomnia, unspecified
CPT/HCPCS: 36415; 80053; 80061; 82306; 82670; 83498; 83525; 84402; 84439; 84443; 85025